=== PATIENT | male | born 1955 | race Asian ===

== ENCOUNTER 2025-06-24 08:34 | Outpatient (CLI) | payer BC ==
[2025-06-24 09:36] LABS: #Basophils 0.04 10x3/uL (0.0-0.2); #Eosinophils 0.22 10x3/uL (0.0-0.5); #Monocytes 0.44 10x3/uL (0.0-1.1); #Neutrophils 3.53 10x3/uL (1.5-8.4); %Basophils 0.7 % (0.0-2.0); %Eosinophils 3.8 % (0.0-6.0); %Lymphocytes 26.3 % (18.0-47.0); %Monocytes 7.6 % (0.0-10.0); %Neutrophils 61.3 % (40.0-75.0); Hematocrit 43.2 % (38.8-50.0); Hemoglobin 14.4 g/dL (13.5-17.5); Mean Corpuscular Hemoglobin 29.3 pg (27.0-33.0); Mean Corpuscular Volume 88.0 fL (81.2-95.1); Platelet Count 150 10x3/uL (150-450); Red Blood Cell (RBC) Count 4.91 10x6/uL (4.32-5.72); White Blood Cell (WBC) Count 5.77 10x3/uL (3.5-10.5)
[2025-06-24 09:56] LABS: ALT (SGPT) 46 U/L (Less than 45); AST (SGOT) 31 U/L (11-34); Albumin 4.5 g/dL (3.1-4.5); Alkaline Phosphatase 78 U/L (40-110); Anion Gap 9 mmol/L (10-20); BUN (Urea Nitrogen) 14 mg/dL (8.4-25.7); Bilirubin, Direct 0.4 mg/dL (0.1-0.3); Calc. Creatinine Clearance 0 mL/min (70-130); Calcium 9.2 mg/dL (7.8-10.44); Carbon Dioxide 27 mmol/L (23-31); Chloride 106 mmol/L (98-107); Glucose 148 mg/dL (80-115); Potassium 4.1 mmol/L (3.5-5.1); Sodium 138 mmol/L (136-145)
[2025-06-24 11:11] LABS: Bilirubin, Total 0.7 mg/dL (0.3-1.2)
== END 2025-06-24 08:35 | disposition home or self-care (01) ==
LOC: CSHLAB 08:34
PROVIDERS: ATTEND Surgery
DX: Z01.818 Encounter for other preprocedural examination (principal); K81.9 Cholecystitis, unspecified
CPT/HCPCS: 80048; 80076; 85025; 93005; 93010